=== PATIENT | female | born 1990 | race Caucasian/White ===

== ENCOUNTER → 2016-06-20 | Outpatient (CLI) | payer OTHER | LOC: RAD 16:37 | PROVIDERS: ATTEND Family Medicine | DX: S46.912A Strain of unspecified muscle, fascia and tendon at shoulder and upper arm level, left arm, initial encounter (principal); X50.0XXA Overexertion from strenuous movement or load, initial encounter | CPT/HCPCS: 73030 ==

== ENCOUNTER → 2016-06-29 | Outpatient (CLI) | payer OTHER | LOC: RAD 09:44 | PROVIDERS: ATTEND Family Medicine | DX: Z53.9 Procedure and treatment not carried out, unspecified reason (principal) ==